=== PATIENT | male | born 1985 | race Two or more races ===

== ENCOUNTER 2017-12-10 02:11 | Emergency (ER) | payer BC ==
[~2017-12-10] VITALS: Ht 175.3 cm; Wt 90.7 kg
[2017-12-10 02:31] VITALS: BP 104/63
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
[2017-12-10] MEDS ORDERED: IBUPROFEN600 MG ORAL (03:25)
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
[2017-12-10 06:12] VITALS: BP 110/65
== END 2017-12-10 06:12 | disposition home or self-care (01) ==
LOC: EDBD 02:11 → EMR 02:24
DX: S09.90XA Unspecified injury of head, initial encounter (principal); S01.01XA Laceration without foreign body of scalp, initial encounter; F10.920 Alcohol use, unspecified with intoxication, uncomplicated; Y09 Assault by unspecified means
CPT/HCPCS: 70450; 99284